=== PATIENT | female | born 1995 | race Caucasian/White ===

== ENCOUNTER 2021-10-07 02:00 | Emergency (ER) | payer OTHER ==
[2021-10-07 02:36] VITALS: BP 126/81; PULSE 105; TEMP 98.8; BMI 20.1
[2021-10-07] MEDS ORDERED: DEXAMETHASONE SOD PHOSPHATE 10 MG/1 ML VIAL IM ONE (03:44)
[2021-10-07] MEDS ORDERED: DEXAMETHASONE SOD PHOSPHATE 10 MG/1 ML VIAL ONE (04:00)
[2021-10-07] MEDS ORDERED: ALBUTEROL SO4 2.5/IPRATROPIUM 0.5 INH SOL 3 ML VIAL.NEB. NEB ONE ×2 (04:00→04:13)
[2021-10-07] MEDS: ALBUTEROL SO4 2.5/IPRATROPIUM 0.5 INH SOL 3 ML VIAL.NEB. NEB SCH ×2 (04:07→04:22)
== END 2021-10-07 05:12 | disposition home or self-care (01) ==
LOC: JER 02:00
PROC: 3E023GC Introduction of Other Therapeutic Substance into Muscle, Percutaneous Approach (ICD-10-PCS; principal; 2021-10-07)
PROC: 3E0F7GC Introduction of Other Therapeutic Substance into Respiratory Tract, Via Natural or Artificial Opening (ICD-10-PCS; 2021-10-07)
DX: J40 Bronchitis, not specified as acute or chronic (principal)
CPT/HCPCS: 71046-TC-FY; 99284-25; J1100

== ENCOUNTER 2022-03-22 17:35 | Emergency (ER) | payer OTHER ==
[2022-03-22 17:53] VITALS: BP 110/79; PULSE 81; TEMP 98.7; BMI 20.9
[2022-03-22] MEDS ORDERED: AMOX TR/POT CLAV 875MG/125MG TABLETS (FP) PO ONE (18:10)
[2022-03-22] MEDS ORDERED: AMOX TR/POT CLAV 875MG/125MG TABLETS (FP) ONE (18:13)
== END 2022-03-22 18:28 | disposition home or self-care (01) ==
LOC: FER 17:35
DX: S61.451A Open bite of right hand, initial encounter (principal); W55.01XA Bitten by cat, initial encounter
CPT/HCPCS: 99283-25

== ENCOUNTER 2023-12-01 21:20 | Emergency (ER) | payer BC, OTHER ==
[2023-12-01 21:31] VITALS: BP 124/84; PULSE 89; RESP 16; TEMP 97.8
== END 2023-12-02 00:55 | disposition home or self-care (01) ==
LOC: JER 21:20
DX: M79.605 Pain in left leg (principal); R20.0 Anesthesia of skin; R20.2 Paresthesia of skin
CPT/HCPCS: 93971-TC; 99284-25